=== PATIENT | male | born 1940 | race Caucasian/White ===

== ENCOUNTER 2016-05-20 00:01 | Outpatient (RCR) ==
[2016-05-16 21:19] VITALS: BMI 27.0
== END 2016-06-19 ==
LOC: CAR.REHAB 00:01
PROVIDERS: ATTEND Internal Medicine
DX: I25.10 Atherosclerotic heart disease of native coronary artery without angina pectoris (principal)

== ENCOUNTER 2016-06-20 07:42 | Outpatient (RCR) ==
[2016-05-16 21:19] VITALS: BMI 27.0
[2016-07-10 12:18] VITALS: BP 132/58
== END 2016-07-17 ==
LOC: CAR.REHAB 07:42
PROVIDERS: ATTEND Internal Medicine
DX: I25.10 Atherosclerotic heart disease of native coronary artery without angina pectoris (principal)
CPT/HCPCS: 93797

== ENCOUNTER 2016-07-17 11:29 | Outpatient (CLI) ==
[2016-05-16 21:19] VITALS: BMI 27.0
[2016-07-17 11:52] LABS: BASOPHILS % (AUTO) 0.1 % (0.0-3.0); EOSINOPHILS % (AUTO) 0.1 % (0.0-7.0); HEMATOCRIT 37.6 % (42.0-52.0); HEMOGLOBIN 13.1 g/dl (14.0-18.0); IMMATURE GRANULOCYTE % (AUTO) 0.2 % (0.0-5.0); LYMPHOCYTES # (AUTO) 0.9 K/uL (0.60-3.4); LYMPHOCYTES % (AUTO) 5.8 (10.0-50.0); MEAN CORPUSCULAR HEMOGLOBIN 30.1 pg (27.0-31.0); MEAN CORPUSCULAR HGB CONC 34.8 (31.8-35.4); MEAN CORPUSCULAR VOLUME 86.4 fl (80.0-94.0); MONOCYTES # (AUTO) 0.8 K/uL (0.4-2.0); MONOCYTES % (AUTO) 5.6 (0-10); NEUTROPHILS # (AUTO) 13.3 K/ul (2.0-6.9); NEUTROPHILS % (AUTO) 88.2; PLATELET COUNT 262 10^3/uL (140-440); RED BLOOD COUNT 4.35 10^6/ul (4.70-6.10); WHITE BLOOD COUNT 15.12 K/ul (4.2-10.2)
[2016-07-17 11:53] LABS: BILIRUBIN,URINE 2+ (NEGATIVE); KETONES,URINE 1+ (NEGATIVE); LEUKOCYTE ESTERASE ,URINE 1+ (NEGATIVE); NITRITE,URINE Positive (NEGATIVE); PROTEIN,URINE 3+ (NEGATIVE); URINE, BLOOD 3+ (NEGATIVE)
[2016-07-17 12:08] LABS: ADD URINE MICROSCOPIC YES
[2016-07-17 12:18] LABS: ALBUMIN 3.6 g/dL (3.4-5.0); ALBUMIN/GLOBULIN RATIO 1.2; ANION GAP 12.2; BILIRUBIN,TOTAL 0.87 mg/dL (0.00-1.20); CALCIUM 9.2 mg/dL (8.2-10.2); CREATININE 1.2 mg/dL (0.60-1.10); POTASSIUM 4.2 mmol/L (3.5-5.1); TOTAL PROTEIN 6.6 g/dL (5.8-8.1)
--- NOTE | 2016-07-17 13:00 | CT ---
EXAM: CT Abdomen without contrast. CT Pelvis without contrast. HISTORY: Low back pain. Hematuria. COMPARISON: None available. TECHNIQUE: Multiple axial images of the abdomen and pelvis were obtained without intravenous contra st. Images were reformatted in the coronal plane. FINDINGS: Please note that evaluation of the abdominal and pelvic structures is limited due to lack of intravenous contrast. The lung bases are clear. Degenerative changes are present in the spine. Gallbladder is absent. The liver, pancreas, spleen, and adrenal glands demonstrate normal contour. No calcified renal stones or hydronephrosis detected. No ureteral or bladder calculi detected. The bladder is not well distended although there is diffuse haziness surrounding the urinary bladder. Prostate is surgically absent. Moderate sized hiatal hernia noted. There is no evidence for bowel obstruction. Appendix is normal . No free fluid or free air identified. Atherosclerotic calcifications present. No free fluid or f ree air noted. IMPRESSION: 1. Perivesical inflammation which could suggests cystitis. Given that the prostate is absent, post radiation change would be a consideration. 2. No acute abnormality of the kidneys. 3. Moderate hiatal hernia.
== END 2016-07-17 11:30 | disposition home or self-care (01) ==
LOC: RAD 11:29
PROVIDERS: ATTEND Emergency Medicine
DX: R31.9 Hematuria, unspecified (principal); R10.9 Unspecified abdominal pain
CPT/HCPCS: 36415; 80053; 81001; 85025; 87086; 87186

== ENCOUNTER 2016-07-18 09:27 | Outpatient (RCR) ==
[2016-05-16 21:19] VITALS: BMI 27.0
[2016-08-16 10:57] VITALS: BP 136/56
== END 2016-08-17 ==
LOC: CAR.REHAB 09:27
PROVIDERS: ATTEND Internal Medicine
DX: I25.10 Atherosclerotic heart disease of native coronary artery without angina pectoris (principal)
CPT/HCPCS: 93797

== ENCOUNTER 2016-08-18 07:00 | Outpatient (RCR) ==
[2016-05-16 21:19] VITALS: BMI 27.0
[2016-09-11 10:52] VITALS: BP 136/64
== END 2016-09-16 ==
LOC: CAR.REHAB 07:00
PROVIDERS: ATTEND Internal Medicine
DX: I25.10 Atherosclerotic heart disease of native coronary artery without angina pectoris (principal)
CPT/HCPCS: 93797

== ENCOUNTER 2016-09-13 06:05 | Outpatient (CLI) ==
[2016-05-16 21:19] VITALS: BMI 27.0
--- NOTE | 2016-09-13 09:20 | STRESSMOD ---
Ordering Physician: MONICA GUERRERO Date of Test: 09/13/16 Medical History: CHEST PAIN, STENTS 2000 AND 2011 Current Medications: LOSARTAN, ATORVASTATIN, LIBRAX, LEVOTHYROXINE, NEXIUM, METOPROLOL, LORAZEPAM, ULTRAM, ESCITALOPRAM, NITROSTAT Physical Findings: S1, S2, NO S3 Resting EKG: SINUS RHYTHM/NO ACUTE CHANGES Target Heart Rate: 122/144 STAGE MPH/GRADE HEART RATE BPM BLOOD PRESSURE mmhg RHYTHM S-T SEGMENT UP DOWN SYMPTOMS,COMMENTS At Rest 50 116/60 SR X NONE 1 1.7/0% 70 120/72 SR X NONE 2 1.7/5% 75 120/60 SR X NONE 3 1.7/10% 80 138/70 SR X NONE 4 2.5/12% 5 3.4/14% 6 4.2/16% 7 5.18% Immediately after 85 SR X FATIGUE Total Time: 10:00 Maximum Heart Rate Reached: 85 Reason for Termination : FATIGUE 3 MINUTES POST EXERCISE: HR 60/BPM, BP 130/64 MMHG ____ INTERPRETATION: 98% OXYGEN SATURATION WITH EXERCISE ON ROOM AIR METS 7.0 1. NO EVIDENCE OF ISCHEMIA BY ST-T WAVE (HEART RATE 50/BPM TO 85/BPM) 2. NO CHEST PAIN OR DISCOMFORT 3. NO ARRHYTHMIAS 4. BLOOD PRESSURE RESPONSE ADEQUATE NORMAL LEFT VENTRICULAR CONTRACTILITY--RESTING AND POST EXERCISE MTDD
--- NOTE | 2016-09-13 09:27 | ECHOSTRESS ---
Date of Exam: 09/13/16 Ordering Physician: MONICA GUERRERO Reason for Echo: CHEST PAIN, STRESS TEST--NO ISCHEMIA M-Mode Normal Adult Results LV Dimensions Normal Adult Results AoV Opening excursions >1.6 LVEDD-base- 3.5-5.8 Ao root dimensions 2.0-3.7 LVESD-base- 3.1-4.6 L. Atrium dimensions 1.9-3.8 Post. Wall thickness 0.8-1.1 IV septum (thickness) 0.7-1.2 Post. Wall excursion 0.72-1.3 Septal motion Systolic motion R. Ventricular cavity 1.5-2.0 LVEF 60% Paradoxical septal wall motion 2-D: NORMAL LEFT VENTRICULAR CONTRACTILITY--RESTING AND POST EXERCISE M-MODE: MV: AV: TV: PV: CHAMBER SIZE: WALL MOTION: NORMAL LEFT VENTRICULAR CONTRACTILITY--RESTING AND POST EXERCISE PERICARDIUM: INTERPRETATION: 1. NORMAL LEFT VENTRICULAR CONTRACTILITY--RESTING AND POST EXERCISE MTDD
--- NOTE | 2016-09-14 09:36 | ECHO2D ---
Date of Exam: 09/13/16 Ordering Physician: MONICA GUERRERO Reason for Echo: CHEST PAIN M-Mode Normal Adult Results LV Dimensions Normal Adult Results AoV Opening excursions >1.6 >1.6 LVEDD-base- 3.5-5.8 4.8 Ao root dimensions 2.0-3.7 4.0 LVESD-base- 3.1-4.6 L. Atrium dimensions 1.9-3.8 5.2 Post. Wall thickness 0.8-1.1 1.2 IV septum (thickness) 0.7-1.2 1.2 Post. Wall excursion 0.72-1.3 NORMAL Septal motion NORMAL Systolic motion R. Ventricular cavity 1.5-2.0 NORMAL LVEF 60% 62% Paradoxical septal wall motion NORMAL 2-D : ENLARGED LEFT ATRIAL SIZE/ DILATED AORTIC ROOT, NORMAL LEFT VENTRICULAR CONTRACTILITY, NO EFFUSION, NO THROMBUS M-MODE: MV: NORMAL AV: NORMAL TV: NORMAL PV: CHAMBER SIZE: ENLARGED LEFT ATRIAL CAVITY/DILATED AORTIC ROOT WALL MOTION: NORMAL PERICARDIUM: NORMAL INTERPRETATION: 1. BORDERLINE LEFT VENTRICULAR HYPERTROPHY 2. NORMAL LEFT VENTRICULAR CONTRACTILITY 3. DILATED AORTIC ROOT MTDD
== END 2016-09-13 06:06 | disposition home or self-care (01) ==
LOC: CAR 06:05
PROVIDERS: ATTEND Internal Medicine
DX: R07.9 Chest pain, unspecified (principal)

== ENCOUNTER 2016-09-17 08:54 | Outpatient (RCR) ==
[2016-05-16 21:19] VITALS: BMI 27.0
[2016-10-12 11:56] VITALS: BP 124/62
== END 2016-10-17 ==
LOC: CAR.REHAB 08:54
PROVIDERS: ATTEND Internal Medicine
DX: R07.9 Chest pain, unspecified (principal)
CPT/HCPCS: 93797

== ENCOUNTER 2016-10-16 10:08 | Day surgery (SDC) ==
[2016-05-16 21:19] VITALS: BMI 27.0
[2016-10-16] MEDS ORDERED: LIDOCAINE 1% 20 ML MDV ID ONE (11:00)
[2016-10-16] MEDS ORDERED: VERSED ONE (11:55)
[2016-10-16] MEDS ORDERED: DIPRIVAN 20 ML VIAL IVP ONE (11:55)
[2016-10-16] MEDS ORDERED: LIDOCAINE HCL 2% LUER-JET ONE (11:55)
[2016-10-16 12:56] VITALS: BP 167/64; TEMP 98.9
--- NOTE | 2016-10-17 13:47 | OP ---
INDICATIONS FOR PROCEDURE: 76 year old gentleman presents for evaluation of intermittent nausea. The patient gets nausea about once every other day and can occur after a bowel movement. Initially thought that Carafate was helping but it doesn't helped. Doubled his Nexium to twice a day and hasn't made much of a difference he states. He is scheduled for endoscopy exam. MEDICATIONS: SEE ANESTHESIA NOTES. PROCEDURE: ENDOSCOPY, VENKAT BIOPSY. REPORT: The risks, benefits, alternatives and limitations were discussed in detail with the patient. Informed consent was obtained. After adequate sedation was achieved, the video endoscope was introduced in the posterior pharynx and esophagus under direct vision and easily advanced down to the second portion of the duodenum. I then slowly withdrew. The duodenal mucosa appeared unremarkable as did the duodenal bulb. The antrum and body were relatively unremarkable. The scope was retroflexed to look at the cardia and fundus which was unremarkable. The scope was anteflexed and two biopsies from the antrum and one from the body were obtained for H.Pylori testing. The scope was withdrawn back through the esophagus and there was a small 1 to 2cm sliding hiatal hernia and the esophagus was otherwise unremarkable. The patient tolerated the procedure well with stable vital signs and pulse oximetry throughout. IMPRESSION: 1. Small hiatal hernia 2. Nothing to account for his intermittent nausea RECOMMENDATIONS: 1. Strict reflux precautions 2. It is OK for him to stop the Carafate and only use it on a PRN basis as he has no significant improvement. 3. Await H. Pylori and it if positive then we will initiate treatment. 4. He does have a some nausea after bowel movement and I suggest that he go ahead and try taking her Miralax again as he moves his bowels every other day sometimes to see if increase of bowel habits would help. 5. Asked him to followup with his primary care physician for non-intestinal cause of nausea 6. Librax has helped him in the past, he may have an underlined anxiety issues that could be contributing as he has been under stress since his has passed. 7. We will see him back in the office in 6-8 weeks for followup evaluation CC: Dr. Lan HURTADO
== END 2016-10-16 13:30 | disposition home or self-care (01) ==
LOC: SURG 10:08
PROVIDERS: ATTEND Internal Medicine Gastroenterology
DX: R11.0 Nausea (principal); K44.9 Diaphragmatic hernia without obstruction or gangrene
CPT/HCPCS: 87339

== ENCOUNTER 2016-10-18 06:43 | Outpatient (RCR) ==
[2016-05-16 21:19] VITALS: BMI 27.0
[2016-11-15 10:53] VITALS: BP 108/56
== END 2016-11-16 ==
LOC: CAR.REHAB 06:43
PROVIDERS: ATTEND Internal Medicine
DX: I25.10 Atherosclerotic heart disease of native coronary artery without angina pectoris (principal)
CPT/HCPCS: 93797

== ENCOUNTER 2016-10-27 03:10 | Emergency (ER) | payer OTHER ==
[2016-10-27 03:19] VITALS: BP 126/60; TEMP 97.8; BMI 28.1
[2016-10-27 03:46] LABS: BASOPHILS # (AUTO) 0.1 K/uL (0-0.2); BASOPHILS % (AUTO) 0.7 % (0.0-3.0); EOSINOPHILS # (AUTO) 0.1 K/ul (0.0-0.7); EOSINOPHILS % (AUTO) 1.6 % (0.0-7.0); HEMATOCRIT 36.9 % (42.0-52.0); HEMOGLOBIN 12.8 g/dl (14.0-18.0); IMMATURE GRANULOCYTE % (AUTO) 0.4 % (0.0-5.0); LYMPHOCYTES # (AUTO) 1.9 K/uL (0.60-3.4); LYMPHOCYTES % (AUTO) 28.3 (10.0-50.0); MEAN CORPUSCULAR HGB CONC 34.7 (31.8-35.4); MEAN CORPUSCULAR VOLUME 86.4 fl (80.0-94.0); MONOCYTES # (AUTO) 0.6 K/uL (0.4-2.0); MONOCYTES % (AUTO) 8.2 (0-10); NEUTROPHILS # (AUTO) 4.1 K/ul (2.0-6.9); NEUTROPHILS % (AUTO) 60.8; PLATELET COUNT 209 10^3/uL (140-440); RED BLOOD COUNT 4.27 10^6/ul (4.70-6.10); WHITE BLOOD COUNT 6.72 K/ul (4.2-10.2)
[2016-10-27 04:46] LABS: ALBUMIN 3.4 g/dL (3.4-5.0); ALBUMIN/GLOBULIN RATIO 1.21; ANION GAP 8.6; BILIRUBIN,TOTAL 0.61 mg/dL (0.00-1.20); BUN/CREATININE RATIO 14.28; CALCIUM 9.3 mg/dL (8.2-10.2); CREATININE 1.19 mg/dL (0.60-1.10); POTASSIUM 3.6 mmol/L (3.5-5.1); TOTAL PROTEIN 6.2 g/dL (5.8-8.1); TROPONIN I 0.329 ng/ml (0.0000-0.4000)
--- NOTE | 2016-10-27 05:13 | ED.PDOC ---
General ED Provider: Dr. IRA GABRIEL-ER Chief Complaint: Chest Pain Stated Complaint: my chest was burning--i think it was gerd--i took 2 tums and i feel better--i have ntg at home but i didnt use it Time Seen by Physician: 03:15 Mode of Arrival: Walk-In Information Source: Patient Exam Limitations: No limitations Primary Care Provider: MONICA MALLORY Nursing and Triage Documentation Reviewed and Agree: Yes Cardiovascular Complaint Exam - Chest Pain Complaint/Exam Onset: Sudden Duration: a few min Symptoms Are: Resolved Length of Chest Pain Episodes: several min Initial Severity: Mild Current Severity: None Location: Reports: Diffuse Character: Reports: Burning Aggravating: Reports: None Alleviating: Reports: Spontaneous resolution Associated Signs and Symptoms: Denies: Diaphoresis, Nausea, Vomiting, Fever, Palpitations, Cough, Hemoptysis, Back pain, Abdominal pain, Dizziness, Short of air, Calf pain, Calf swelling Related Surgical History: Reports: PTCA/Stent History of Healthcare-Acquired Pneumonia: Reports: No AMI/ACS Risk Factors: Reports: Myocardial Infarction, Nitroglycerine use, Hypertension TAD Risk Factors: Reports: Hypertension Prior Care for this Complaint: No Recent Stress Test: Yes (2mos ago per his hx and was normal) Recent Echo/LV Function: No JVD Present: No Subcutaneous Emphysema Present: No Diminshed Breath Sounds: No Reproducible Chest Wall Pain: No Bilateral Pulses Present: Yes Unequal Pulses Noted: No If Risk Factors for AMI/ACS Consider: EKG, Cardiac Enzymes Differential Diagnoses: Acute VA, ACS, Unstable Angina, Chest Wall Pain, GI Diseasae Quality Indicator For Non-Traumatic Chest Pain/Syncope: EKG Performed Review of Systems - Review Of Systems Constitutional: Reports: No symptoms Eyes: Reports: No symptoms Ears, Nose, Mouth, Throat: Reports: No symptoms Respiratory: Reports: No symptoms Cardiac: Reports: Chest pain GI: Reports: No symptoms : Reports: No symptoms Musculoskeletal: Reports: No symptoms Skin: Reports: No symptoms Neurological: Reports: No symptoms Endocrine: Reports: No symptoms Hematologic/Lymphatic: Reports: No symptoms All Other Systems: Reviewed and Negative Past Medical History - Past Medical History Previously Healthy: No Endocrine: Reports: Dyslipidemia Cardiovascular: Reports: CAD, VA, Hypertension Respiratory: Reports: None Hematological: Reports: None Gastrointestinal: Reports: None Genitourinary: Reports: None Neuro/Psych: Reports: None Musculoskeletal: Reports: None Cancer: Reports: None - Surgical History General Surgical History: Reports: Cholecystectomy, Hernia Repair, Other - Family History Family History: Reports: Unknown - Social History Smoking Status: Never smoker Hx Substance Use: No Alcohol Screening: None Lives: With family - Immunizations Tetanus Shot up to Date: Yes Physical Exam - Physical Exam Appearance: Well-appearing, No pain distress, Well-nourished Eyes: TR, EOMI, Conjunctiva clear ENT: Ears normal, Nose normal, Oropharynx normal Neck: Supple Respiratory: Airway patent, Breath sounds clear, Breath sounds equal, Respirations nonlabored Cardiovascular: RRR, Pulses normal, No rub, No murmur GI/: Soft, Nontender, No masses, Bowel sounds normal, No Organomegaly Musculoskeletal: Normal strength, ROM intact, No edema, No calf tenderness Skin: Warm, Dry, Normal color Neurological: Sensation intact, Motor intact, Reflexes intact, Cranial nerves intact, Alert, Oriented Psychiatric: Affect appropriate, Mood appropriate Interpretation - Radiology Interpretation Radiology Interpretation By: ED Physician Radiology Results: Negative Exam Interpreted: Portable CXR - EKG Interpretation Time of EKG #1: 03:20 Rate: Normal Rhythm: Sinus Ectopy: None Debord: NL ST Segment: Normal Time of EKG #2: 05:00 Rate: Normal Rhythm: Sinus Ectopy: None Debord: NL ST Segment: Normal EKG Interpretation: nsr Re-Evaluation - Re-Evaluation Time of Re-Evaluation: 05:15 Status: Improved Vital Signs Stable: Yes Pain Level: no pain--we have observed him in the ed for 2 hrs witout cp or dyspnea Appearance: NAD Lungs: Clear Skin: Warm and Dry Neuro: Alert and Oriented X3 CV: RRR Critical Care Note - Critical Care Note Total Time (mins): 0 Course - Course Hematology/Chemistry: 10/27/16 03:41 10/27/16 03:41 Orders, Labs, Meds: Lab Review 10/27/16 03:41 WBC 6.72 RBC 4.27 L Hgb 12.8 L Hct 36.9 L MCV 86.4 MCH 30.0 MCHC 34.7 RDW Coeff of Joe 12.6 Plt Count 209 Immature Gran % (Auto) 0.4 Neut % (Auto) 60.8 Lymph % (Auto) 28.3 Moody % (Auto) 8.2 Eos % (Auto) 1.6 Baso % (Auto) 0.7 Immature Gran # (Auto) 0.0 Neut # 4.1 Lymph # 1.9 Moody # 0.6 Eos # 0.1 Baso # 0.1 D-Dimer (Manual) 265.69 Sodium 136 Potassium 3.6 Chloride 103 Carbon Dioxide 28 Anion Gap 8.6 BUN 17 Creatinine 1.19 H Estimated GFR (MDRD) 59.00 BUN/Creatinine Ratio 14.28 Glucose 103 Calcium 9.3 Total Bilirubin 0.61 AST 22 ALT 23 Alkaline Phosphatase 63 Total Creatine Kinase 182 CK-MB (CK-2) 5.0 H CK-MB (CK-2) % 2.30220 Troponin I 0.3290 Total Protein 6.2 Albumin 3.4 Globulin 2.8 Albumin/Globulin Ratio 1.21 Amylase 68 Lipase 27 TSH 0.296 L Free T4 1.06 Orders Category Date Time Status EKG-(ED ONLY) Stat CARDIO 10/27/16 03:39 Completed EKG-(ED ONLY) Timed CARDIO 10/27/16 05:00 Ordered ED [employer] .ONCE EMERGENCY 10/27/16 03:40 Active AMYLASE Stat LAB 10/27/16 03:41 Completed CBC W/ AUTO DIFF Stat LAB 10/27/16 03:41 Completed COMPREHENSIVE METABOLIC PANEL Stat LAB 10/27/16 03:41 Completed CREATINE KINASE Stat LAB 10/27/16 03:41 Completed D-DIMER Stat LAB 10/27/16 03:41 Completed FREE T4 (FREE THYROXINE) Stat LAB 10/27/16 03:41 Completed LIPASE Stat LAB 10/27/16 03:41 Completed THYROID STIMULATING HORMONE Stat LAB 10/27/16 03:41 Completed TROPONIN I Stat LAB 10/27/16 03:41 Completed CXR [CHEST, 1V AP ONLY] Stat RADS 10/27/16 03:41 Ordered Vital Signs: Temp Pulse Resp BP Pulse Ox 10/27/16 03:11 97.8 F 58 L 16 126/60 97 ESTELLE Risk Score ESTELLE Risk Score: Risk Score Odds of by 30D 0 0.1 (0.1-0.2) 1 0.3 (0.2-0.3) 2 0.4 (0.3-0.5) 3 0.7 (0.6-0.9) 4 1.2 (1.0-1.5) 5 2.2 (1.9-2.6) 6 3.0 (2.5-3.6) 7 4.8 (3.8-6.1) Departure - Departure Time of Disposition: 05:15 Disposition: HOME SELF-CARE Discharge Problem: Chest pain Instructions: Chest Pain (ED) Condition: Good Pt referred to PMD for follow-up: Yes Additional Instructions: if any furtehr chest pain--use ntg and call 911--f/u with dr mallory next week Allergies/Adverse Reactions: Allergies No Known Allergies Allergy (Verified 10/27/16 03:24) Home Medications: Ambulatory Orders Aspirin [Aspirin EC] 81 mg PO DAILY 08/06/13 Calcium Carbonate/Vitamin D3 [Calcium 1,000 + D3 Caplet] 1 tab PO DAILY Lorazepam [Ativan] 0.5 mg PO DAILY 08/06/13 Atorvastatin Calcium [Lipitor] 40 mg PO BEDTIME 11/06/13 Esomeprazole Magnesium [Nexium] 1 cap PO BID 11/06/13 Metoprolol Tartrate [Lopressor] 25 mg PO BID 11/06/13 Nitroglycerin [Nitrostat] 0.4 mg SL DIRECTED PRN 11/06/13 Multivit-Min/FA/Lycopene/Lut [Centrum Silver Ultra Men's Tab] 1 each PO DAILY [place]-3/Dha/Epa/Fish Oil [[place]-3 Fish Oil 1,200 mg Sfgl] 1,200 mg PO QID Cyanocobalamin (Vitamin B-12) [Vitamin B12] 500 mcg PO DAILY 10/16/16 Escitalopram Oxalate 20 mg PO DAILY 10/16/16 Levothyroxine Sodium [Synthroid] 50 mcg PO QDAC 10/16/16 Losartan/Hydrochlorothiazide [Losartan-Hctz 100-25 mg Tab] 0.5 tab PO DAILY 03/05 Polyethylene Glycol [Polyox Wsr-301] 1 gm MC DAILY PRN 10/27/16 Disposition Discussed With: Patient, Family
--- NOTE | 2016-10-27 07:12 | DI ---
EXAM: Single frontal view of the chest HISTORY: Chest pain. COMPARISON: Chest x-ray 04/30/[address] chest 05/06/2016 with multiple priors. FINDINGS: Cardiomediastinal silhouette is upper limit of normal. There is no pneumothorax or pleura l effusion. There is no consolidation, nodule or mass. The osseous structures are stable. IMPRESSION: No acute cardiopulmonary process with mild cardiomediastinal silhouette enlargement.
== END 2016-10-27 05:29 | disposition home or self-care (01) ==
LOC: ED 03:10
DX: R07.9 Chest pain, unspecified (principal); I10 Essential (primary) hypertension; E78.5 Hyperlipidemia, unspecified; I25.10 Atherosclerotic heart disease of native coronary artery without angina pectoris; I25.2 Old myocardial infarction; Z95.5 Presence of coronary angioplasty implant and graft; Z79.899 Other long term (current) drug therapy
CPT/HCPCS: 36415; 80053; 82150; 82550; 82553; 83690; 84439; 84443; 84484; 85025; 85379; 93005; 93010; 99283

== ENCOUNTER 2016-11-19 07:52 | Outpatient (RCR) ==
[2016-12-11 11:11] VITALS: BP 114/62
== END 2016-12-17 ==
LOC: CAR.REHAB 07:52
PROVIDERS: ATTEND Internal Medicine
DX: I25.10 Atherosclerotic heart disease of native coronary artery without angina pectoris (principal)
CPT/HCPCS: 93797

== ENCOUNTER 2016-12-18 06:52 | Outpatient (RCR) ==
[2016-12-18 11:07] VITALS: BP 128/53
== END 2016-12-28 15:00 | disposition home or self-care (01) ==
LOC: CAR.REHAB 06:52
PROVIDERS: ATTEND Internal Medicine
DX: I25.10 Atherosclerotic heart disease of native coronary artery without angina pectoris (principal)
CPT/HCPCS: 93797

== ENCOUNTER 2017-02-05 09:49 | Outpatient (RCR) ==
[2017-02-12 10:55] VITALS: BP 136/58
== END 2017-02-16 ==
LOC: CAR.REHAB 09:49 → EDSTATUS 09:49
PROVIDERS: ATTEND Internal Medicine
DX: I25.10 Atherosclerotic heart disease of native coronary artery without angina pectoris (principal); Z95.5 Presence of coronary angioplasty implant and graft; I20.9 Angina pectoris, unspecified
CPT/HCPCS: 93797

== ENCOUNTER 2017-03-20 07:37 | Outpatient (RCR) ==
[2017-04-09 10:56] VITALS: BP 118/58
== END 2017-04-18 ==
LOC: CAR.REHAB 07:37
PROVIDERS: ATTEND Internal Medicine
DX: I25.10 Atherosclerotic heart disease of native coronary artery without angina pectoris (principal); I20.9 Angina pectoris, unspecified; Z95.5 Presence of coronary angioplasty implant and graft
CPT/HCPCS: 93797

== ENCOUNTER 2017-04-19 07:13 | Outpatient (RCR) | END 2017-05-19 | LOC: CAR.REHAB 07:13 | PROVIDERS: ATTEND Internal Medicine | DX: I25.10 Atherosclerotic heart disease of native coronary artery without angina pectoris (principal); I20.9 Angina pectoris, unspecified; Z95.5 Presence of coronary angioplasty implant and graft ==

== ENCOUNTER 2017-05-21 07:03 | Outpatient (RCR) | END 2017-06-18 10:34 | disposition home or self-care (01) | LOC: CAR.REHAB 07:03 | PROVIDERS: ATTEND Internal Medicine | DX: I25.10 Atherosclerotic heart disease of native coronary artery without angina pectoris (principal); I20.9 Angina pectoris, unspecified; Z95.5 Presence of coronary angioplasty implant and graft ==

== ENCOUNTER 2017-07-25 09:03 | Outpatient (RCR) ==
[2017-07-25 10:11] VITALS: BMI 29.7
[2017-08-15 09:52] VITALS: BP 128/54
== END 2017-08-17 ==
LOC: CAR.REHAB 09:03
PROVIDERS: ATTEND Internal Medicine
DX: I25.810 Atherosclerosis of coronary artery bypass graft(s) without angina pectoris (principal); Z95.5 Presence of coronary angioplasty implant and graft; E11.9 Type 2 diabetes mellitus without complications
CPT/HCPCS: 93797

== ENCOUNTER 2017-08-19 08:57 | Outpatient (RCR) ==
[2017-09-12 09:51] VITALS: BP 140/56
== END 2017-09-16 23:59 ==
LOC: CAR.REHAB 08:57
PROVIDERS: ATTEND Internal Medicine
DX: I25.10 Atherosclerotic heart disease of native coronary artery without angina pectoris (principal); Z95.5 Presence of coronary angioplasty implant and graft
CPT/HCPCS: 93797

== ENCOUNTER 2017-09-17 06:50 | Outpatient (RCR) ==
[2017-10-17 09:32] VITALS: BP 130/56
== END 2017-10-17 23:59 ==
LOC: CAR.REHAB 06:50
PROVIDERS: ATTEND Internal Medicine
DX: I25.10 Atherosclerotic heart disease of native coronary artery without angina pectoris (principal); I20.9 Angina pectoris, unspecified; Z95.5 Presence of coronary angioplasty implant and graft
CPT/HCPCS: 93797

== ENCOUNTER 2017-10-18 08:46 | Outpatient (RCR) ==
[2017-11-12 10:55] VITALS: BP 130/56
== END 2017-11-16 23:59 ==
LOC: CAR.REHAB 08:46
PROVIDERS: ATTEND Internal Medicine
DX: I25.10 Atherosclerotic heart disease of native coronary artery without angina pectoris (principal); I20.9 Angina pectoris, unspecified; Z95.5 Presence of coronary angioplasty implant and graft
CPT/HCPCS: 93797

== ENCOUNTER 2017-11-18 07:29 | Outpatient (RCR) ==
[2017-12-17 10:51] VITALS: BP 130/56
== END 2017-12-17 23:59 ==
LOC: CAR.REHAB 07:29
PROVIDERS: ATTEND Internal Medicine
DX: I25.10 Atherosclerotic heart disease of native coronary artery without angina pectoris (principal); Z95.5 Presence of coronary angioplasty implant and graft
CPT/HCPCS: 93797

== ENCOUNTER 2017-12-18 07:13 | Outpatient (RCR) ==
[2018-01-16 10:47] VITALS: BP 148/58
== END 2018-01-17 23:59 ==
LOC: CAR.REHAB 07:13
PROVIDERS: ATTEND Internal Medicine
DX: I25.10 Atherosclerotic heart disease of native coronary artery without angina pectoris (principal); Z95.5 Presence of coronary angioplasty implant and graft
CPT/HCPCS: 93797

== ENCOUNTER 2018-01-21 07:09 | Outpatient (RCR) ==
[2018-02-13 12:09] VITALS: BP 136/56
== END 2018-02-16 23:59 ==
LOC: CAR.REHAB 07:09
PROVIDERS: ATTEND Internal Medicine
DX: I25.10 Atherosclerotic heart disease of native coronary artery without angina pectoris (principal); Z95.5 Presence of coronary angioplasty implant and graft
CPT/HCPCS: 93797

== ENCOUNTER 2018-01-22 12:32 | Outpatient (CLI) | payer OTHER ==
--- NOTE | 2018-01-22 13:36 | CT ---
EXAM: CT of the head without contrast History: Head trauma and headache. Technique: Multiplanar CT images through the head were obtained without the administration of IV con trast. Findings: The visualized paranasal sinuses and mastoid air cells are clear in general. No acute tereza varial abnormalities. Intracranially the ventricular and cisternal spaces are normal in size, shape and configuration for a patient of this age. No dominant mass or midline shift. No hydrocephalous. No acute intracranial hemorrhage or abnormal extraaxial fluid collections. Impression: No acute intracranial process.
== END 2018-01-22 12:33 | disposition home or self-care (01) ==
LOC: RAD 12:32
PROVIDERS: ATTEND Internal Medicine
DX: S09.90XA Unspecified injury of head, initial encounter (principal); R51 Headache

== ENCOUNTER 2018-02-17 08:46 | Outpatient (RCR) ==
[2018-02-20 10:52] VITALS: BP 140/62
== END 2018-02-25 07:45 | disposition home or self-care (01) ==
LOC: CAR.REHAB 08:46
PROVIDERS: ATTEND Internal Medicine
DX: I25.10 Atherosclerotic heart disease of native coronary artery without angina pectoris (principal); Z95.5 Presence of coronary angioplasty implant and graft
CPT/HCPCS: 93797

== ENCOUNTER 2018-12-09 06:34 | Day surgery (SDC) | payer OTHER ==
[2018-11-18 09:35] VITALS: BMI 30.4
[2018-12-09] MEDS ORDERED: LIDOCAINE 1% 20 ML MDV ID STA (07:11)
[2018-12-09 07:15] VITALS: TEMP 97.1
[2018-12-09] MEDS ORDERED: DIPRIVAN 20 ML VIAL IVP ONE (09:15)
[2018-12-09 10:16] VITALS: BP 108/39
--- NOTE | 2018-12-10 10:48 | OP ---
INDICATIONS FOR PROCEDURE: 78 year old gentleman presents for colonoscopy exam. He has a past history of colon polyps unknown histology with his last colonoscopy 5 years ago. MEDICATIONS: SEE ANESTHESIA NOTES. PROCEDURE: COLONOSCOPY. SNARE POLYPECTOMY REPORT: The risks, benefits, alternatives and limitations were discussed in detail with the patient. Informed consent was obtained. After adequate sedation was achieved, a digital rectal exam revealed good tone, no masses. The colonoscope was introduced into the rectum and advanced under direct visual guidance to the cecum. The cecum was identified by the appendiceal orifice and IC valve. I then slowly the scope in circumferential manner and examined the mucosa quite carefully. I looked on the proximal and distal sides of folds and flexures as best as possible. I was able to retroflex the scope in the right colon and the left colon to increase visualization. The prep was good. In the ascending colon there was 5mm semi-sessile polyp that I removed by snare technique. In the distal transverse colon at the splenic flexure area there was 2 polyps they were about 7mm and 5mm in size and sessile. These were removed by snare technique. Withdrawing through the sigmoid revealed a few small diverticuli. No other abnormalities noted including on retroflex view of the anal canal. Withdraw time was 11 minute and 51 seconds. The patient tolerated the procedure well with stable vital signs and pulse oximetry throughout. IMPRESSION: 1. Three small polyps removed 2. Mild sigmoid diverticulosis RECOMMENDATIONS: 1. High fiber diet 2. Office visit as needed 3. Await pathology results if everything is benign as expected without alarm features that I suggest a surveillance colonoscopy examination again in 3 years or sooner if there are any signs or symptoms to indicate otherwise. CC: Dr. Lan HURTADO
== END 2018-12-09 10:45 | disposition home or self-care (01) ==
LOC: SURG 06:34
PROVIDERS: ATTEND Internal Medicine Gastroenterology
DX: Z86.010 Personal history of colon polyps (principal); D12.2 Benign neoplasm of ascending colon; K63.5 Polyp of colon

== ENCOUNTER 2018-12-18 07:01 | Outpatient (RCR) ==
[2018-11-18 09:35] VITALS: BMI 30.4
[2019-01-01 09:55] VITALS: BP 134/60
== END 2019-01-05 08:55 | disposition home or self-care (01) ==
LOC: CAR.REHAB 07:01
PROVIDERS: ATTEND Internal Medicine
DX: I25.10 Atherosclerotic heart disease of native coronary artery without angina pectoris (principal); Z95.5 Presence of coronary angioplasty implant and graft
CPT/HCPCS: 93797

== ENCOUNTER 2019-04-22 11:10 | Inpatient (IN) ==
--- NOTE | 2019-04-22 12:13 | CT ---
EXAM: CT BRAIN HISTORY: Head pain TECHNIQUE: CT brain without intravenous contrast. 5-mm axial sections with Reformations. COMPARISON: 01/22/2018 FINDINGS: There is generalized atrophy. There is moderate periventricular and deep white matter low attenuatio n which although nonspecific is suggestive of chronic microvascular ischemic change. These findings are stable. Brain otherwise was unremarkable without evidence of hemorrhage or large vessel distribution recent i schemic infarction. There is no suggestion of acute hydrocephalus or subdural fluid collection. No mass or mass effect. Cranium has no acute finding. Mastoid processes are aerated. The visualized paranasal sinuses revea l mild mucosal thickening IMPRESSION: 1. No acute intracranial process. 2. Mild chronic paranasal sinusitis.
--- NOTE | 2019-04-22 12:33 | CT ---
EXAM: CT THORAX HISTORY: Cough, confusion, fever and weakness. TECHNIQUE: CT thorax without intravenous contrast. Multiplanar images presented. COMPARISON: 02/09/2019 FINDINGS: Heart size is approaching upper limit normal. There is no pericardial effusion. There is atheroscle rotic disease including at the coronary artery levels. No acute infiltrates or consolidated pneumoni a. There is no vascular congestion, pneumothorax or pleural fluid. Stable small right upper lobe no dule measuring about 5 mm since at least 2015. Bones reveal no acute abnormality. Stable paraesophageal hernia. IMPRESSION: 1. No acute process or pneumonia. 2. Stable small right upper lobe nodule. 3. Prominent heart size. 4. Atherosclerotic disease. 5. Stable paraesophageal hernia.
--- NOTE | 2019-04-22 12:39 | CT ---
EXAM: CT ABDOMEN AND PELVIS HISTORY: Abdominal pain, confusion, fever TECHNIQUE: CT abdomen and pelvis without intravenous contrast. Images were reconstructed using 5 mm section thickness. Reformations were prepared. COMPARISON: 07/17/2016 FINDINGS: Diagnostic limitations exist without including intravenous contrast enhanced images. No focal hepati c or splenic lesions. Gallbladder is absent. Pancreas and adrenal glands appear normal. There is s ubtle nonspecific bilateral perinephric fat stranding similar to that previously seen. No hydronephr osis or evidence of urolithiasis. Mild atherosclerotic disease. Grossly stable para esophageal hernia. No evidence of gastric obstruction. The appendix appears nor mal. Nonobstructive bowel gas pattern. Urinary bladder is unremarkable. No prostate is seen. Ther e is no ascites. No abdominal wall hernia. Bones reveal no acute abnormality. The previously described fracture of t he right medial 12th rib and lateral aspect of the right L1 transverse process again noted since more recent CT. These appear to be partially healed. No pneumoperitoneum. See also same day CT thorax report. IMPRESSION: 1. Normal bowel gas pattern. 2. Subtle nonspecific bilateral perinephric fat stranding similar to that previously seen. Correlat e with urinalysis if indicated clinically. 3. Atherosclerotic disease.
[2019-04-22] MEDS ORDERED: ROCEPHIN 1 GM/50 ML D5W 1 GM/50 ML BAG IV STA (13:21)
--- NOTE | 2019-04-22 13:26 | ED.PDOC ---
General ED Provider: Dr. NAVDEEP HUSTON Chief Complaint: Respiratory Complaint Stated Complaint: FLU LIKE SYMPTOMS, HEAD ACHE Time Seen by Physician: 13:38 Mode of Arrival: Wheelchair Information Source: Patient and Family Exam Limitations: No limitations Primary Care Provider: MONICA GUERRERO Nursing and Triage Documentation Reviewed and Agree: Yes Does patient meet sepsis criteria?: No If yes, has appropriate treatment been initiated?: No System Inflammatory Response Syndrome: Not Applicable Sepsis Protocol: For patient's 13 years and over: Temp is 96.8 and below OR 101 and greater Pulse >90 BPM Resp >20/minute Acutely Altered Mental Status Are patient's symptoms suggestive of a new infection, such as: -Pneumonia -Skin, Soft Tissue -Endocarditis -UTI -Bone, Joint Infection -Implantable Device -Acute Abdominal Infection -Wound Infection -Meningitis -Blood Stream Catheter Infection -Unknown Respiratory Complaint Exam Respiratory Complaint/Exam Symptoms Are: Still present Timing: Constant Initial Severity: Moderate Current Severity: Moderate Location: Throat and Chest Character: Reports Non-productive cough Aggravating: Reports None Alleviating: Reports None and Spontaneous resolution Associated Signs and Symptoms: Reports Nasal congestion and Sore throat; Denies Rapid breathing, Dyspnea, Fever, Chills, Chest pain, Pleuritic chest pain, Wheezing, Hemoptysis, Dizziness, Calf pain, Calf swelling, Edema, URI, Hoarseness, Sinus discomfort, Vomiting, Weight loss, Decreased oral intake, Increased thirst, Increased appetite and Increased urination Related History: Reports Similar episode Pulmonary Embolism Risk Factors: None Cardiac Risk Factors: Reports Hypertension Pseudomonas Risk Factors: Reports None Tuberculosis Risk Factors: Reports None Status Asthmaticus Risk Factors: Reports None Home Oxygen Use: No Recent Stress Test: No Recent Echo/LV Function: No Current Antibiotic Use: No Current Asthma Medication Use: No Respiratory Distress: None Inadequate Respiratory Effort: No Dysphagia Present: No Stridor Present: No JVD Present: No Accessory Muscle Use: No Retractions: Not Present Diminished Breath Sounds: Yes Sinus Tenderness: None Grunting Respirations: No Kussmaul Respirations: No Differential Diagnoses: Pneumonia, URI, Influenza and Lower Resp. Infection Quality Indicators For Pneumonia: Antibiotics in 6hr-admit, SpO2 assessed, Empiric Antibiotic Rx and Mental status assessed Review of Systems Review Of Systems Constitutional: Reports Chills, Malaise, Weakness, Sweats and Loss of appetite Eyes: Reports No symptoms Ears, Nose, Mouth, Throat: Reports No symptoms Respiratory: Reports Cough Cardiac: Reports No symptoms GI: Reports No symptoms : Reports No symptoms Musculoskeletal: Reports No symptoms Skin: Reports No symptoms Neurological: Reports No symptoms Endocrine: Reports No symptoms Hematologic/Lymphatic: Reports No symptoms All Other Systems: Reviewed and Negative [facility] Social History Smoking and tobacco status: Never smoker Physical Exam Physical Exam Appearance: Well-appearing, No pain distress and Well-nourished Ill-appearing: Mild Pain Distress: Mild Eyes: TR, EOMI and Conjunctiva clear ENT: Ears normal, Nose normal and Oropharynx normal Neck: Supple Respiratory: Airway patent, Breath sounds clear, Breath sounds equal and Respirations nonlabored Cardiovascular: RRR, Pulses normal, No rub and No murmur GI/: Soft, Nontender, No masses, Bowel sounds normal and No Organomegaly Musculoskeletal: Normal strength, ROM intact, No edema and No calf tenderness Skin: Warm, Dry and Normal color Neurological: Sensation intact, Motor intact, Reflexes intact, Cranial nerves intact, Alert and Oriented Psychiatric: Affect appropriate and Mood appropriate Re-Evaluation Re-Evaluation Time of Re-Evaluation: 13:00 Status: Improved Vital Signs Stable: Yes Pain Level: 0 Appearance: NAD Lungs: Clear Skin: Warm and Dry Neuro: Alert and Oriented X3 CV: RRR Re-Evaluation Time of Re-Evaluation: 13:42 Status: Improved Vital Signs Stable: Yes Pain Level: 0 Appearance: NAD Skin: Warm and Dry Neuro: Alert and Oriented X3 CV: RRR Physician Notification Case Discussed Physician Notified: PMD Time of Notification: 13:43 Critical Care Note Critical Care Note Total Time (mins): 0 Course Course Hematology/Chemistry: 04/22/19 12:20 04/22/19 12:20 Orders, Labs, Meds: Lab Review 04/22/19 04/22/19 04/22/19 11:32 12:10 12:20 WBC RBC Hgb Hct MCV MCH MCHC RDW Coeff of Joe Plt Count Immature Gran % (Auto) Neut % (Auto) Lymph % (Auto) Vernon % (Auto) Eos % (Auto) Baso % (Auto) Immature Gran # (Auto) Neut # (Auto) Lymph # (Auto) Vernon # (Auto) Eos # (Auto) Baso # (Auto) Puncture Site R rad O2 Saturation 98.0 ABG pH 7.492 H ABG pCO2 28.8 L ABG pO2 88.0 ABG HCO3 22.1 ABG Total CO2 23 ABG Base Excess -1 Leonidas Test + FiO2 % 21.0 Sodium Potassium Chloride Carbon Dioxide Anion Gap BUN Creatinine Estimated GFR (MDRD) BUN/Creatinine Ratio Glucose Lactic Acid Calcium Total Bilirubin AST ALT Alkaline Phosphatase Total Creatine Kinase 90.8 Troponin I 0.017 Total Protein Albumin Globulin Albumin/Globulin Ratio Urine Color Urine Clarity Urine pH Ur Specific Garwin Urine Protein Urine Glucose (UA) Urine Ketones Urine Blood Urine Nitrite Urine Bilirubin Urine Urobilinogen Ur Leukocyte Esterase Ur Squamous Epith Cells Urine Mucus Influ A Molecular Assay Negative by naat Influ B Molecular Assay Negative by naat 04/22/19 04/22/19 04/22/19 12:20 12:20 12:20 WBC 8.63 RBC 4.15 L Hgb 12.5 L Hct 37.4 L MCV 90.1 MCH 30.1 MCHC 33.4 RDW Coeff of Joe 14.2 Plt Count 174 Immature Gran % (Auto) 0.3 Neut % (Auto) 80.5 Lymph % (Auto) 7.9 L Vernon % (Auto) 11.2 H Eos % (Auto) 0.0 Baso % (Auto) 0.1 Immature Gran # (Auto) 0.0 Neut # (Auto) 6.9 Lymph # (Auto) 0.7 Vernon # (Auto) 1.0 Eos # (Auto) 0.0 Baso # (Auto) 0.0 Puncture Site O2 Saturation ABG pH ABG pCO2 ABG pO2 ABG HCO3 ABG Total CO2 ABG Base Excess Leonidas Test FiO2 % Sodium 133.2 L Potassium 3.82 Chloride 97.0 L Carbon Dioxide 26.2 Anion Gap 13.82 BUN 22.1 H Creatinine 1.53 H Estimated GFR (MDRD) 44.00 BUN/Creatinine Ratio 14.44 Glucose 124.6 H Lactic Acid 1.58 Calcium 9.15 Total Bilirubin 1.07 AST 30.1 ALT 23.7 Alkaline Phosphatase 97.0 Total Creatine Kinase Troponin I Total Protein 7.66 Albumin 4.37 Globulin 3.29 Albumin/Globulin Ratio 1.32 Urine Color Urine Clarity Urine pH Ur Specific Garwin Urine Protein Urine Glucose (UA) Urine Ketones Urine Blood Urine Nitrite Urine Bilirubin Urine Urobilinogen Ur Leukocyte Esterase Ur Squamous Epith Cells Urine Mucus Influ A Molecular Assay Influ B Molecular Assay 04/22/19 13:12 WBC RBC Hgb Hct MCV MCH MCHC RDW Coeff of Joe Plt Count Immature Gran % (Auto) Neut % (Auto) Lymph % (Auto) Vernon % (Auto) Eos % (Auto) Baso % (Auto) Immature Gran # (Auto) Neut # (Auto) Lymph # (Auto) Vernon # (Auto) Eos # (Auto) Baso # (Auto) Puncture Site O2 Saturation ABG pH ABG pCO2 ABG pO2 ABG HCO3 ABG Total CO2 ABG Base Excess Leonidas Test FiO2 % Sodium Potassium Chloride Carbon Dioxide Anion Gap BUN Creatinine Estimated GFR (MDRD) BUN/Creatinine Ratio Glucose Lactic Acid Calcium Total Bilirubin AST ALT Alkaline Phosphatase Total Creatine Kinase Troponin I Total Protein Albumin Globulin Albumin/Globulin Ratio Urine Color Yellow Urine Clarity Clear Urine pH 5.5 Ur Specific Garwin 1.025 Urine Protein 1+ Urine Glucose (UA) Negative Urine Ketones Negative Urine Blood Negative Urine Nitrite Negative Urine Bilirubin Negative Urine Urobilinogen 0.2 Ur Leukocyte Esterase Negative Ur Squamous Epith Cells Not present Urine Mucus Trace Influ A Molecular Assay Influ B Molecular Assay Orders Category Date Time Status ABG DRAW REQUEST Stat CARDIO 04/22/19 11:42 Completed EKG-(ED ONLY) Stat CARDIO 04/22/19 11:42 Completed EKG-(IP & OP ONLY) DAILY CARDIO 04/23/19 06:00 Ordered EKG-(IP & OP ONLY) DAILY CARDIO 04/24/19 06:00 Ordered EKG-(IP & OP ONLY) DAILY CARDIO 04/25/19 06:00 Ordered INCISION/WOUND CARE Q6HR CARE 04/22/19 13:36 Ordered INTAKE & OUTPUT Q8HR CARE 04/22/19 13:37 Ordered VITAL SIGNS Q4HR CARE 04/22/19 13:36 Ordered REGULAR DIET DIETARY 04/22/19 Lunch Ordered ABG Stat LAB 04/22/19 12:10 Completed BLOOD CULTURE Stat LAB 04/22/19 12:36 Received CBC W/ AUTO DIFF DAILY@0600 LAB 04/23/19 06:00 Ordered CBC W/ AUTO DIFF DAILY@0600 LAB 04/24/19 06:00 Ordered CBC W/ AUTO DIFF Stat LAB 04/22/19 12:20 Completed COMPREHENSIVE METABOLIC PANEL DAILY@0600 LAB 04/23/19 06:00 Ordered COMPREHENSIVE METABOLIC PANEL DAILY@0600 LAB 04/24/19 06:00 Ordered COMPREHENSIVE METABOLIC PANEL Stat LAB 04/22/19 12:20 Completed CREATINE KINASE Stat LAB 04/22/19 12:20 Completed FLU A/B MOLECULAR Stat LAB 04/22/19 11:32 Completed LACTIC ACID Stat LAB 04/22/19 12:20 Completed MOLECULAR GROUP A STREP Stat LAB 04/22/19 11:32 Completed TROPONIN I Stat LAB 04/22/19 12:20 Completed URINALYSIS C & S IF INDICATED Stat LAB 04/22/19 13:12 Completed Aspirin [Aspirin EC] MEDS 04/23/19 09:00 Ordered 81 mg PO DAILY Atorvastatin Calcium [Lipitor] MEDS 04/22/19 21:00 Ordered 40 mg PO BEDTIME Ceftriaxone/D5w 1 gm Premix [Rocephin 1 gm/50 ml D5w] MEDS 04/22/19 13:21 Active 1 gm in 50 ml IV ONCE Escitalopram Oxalate [Lexapro] MEDS 04/23/19 09:00 Ordered 20 mg PO DAILY Levothyroxine Sodium [Synthroid] MEDS 04/23/19 06:30 Ordered 50 mcg PO QDAC Lorazepam [Ativan] MEDS 04/23/19 09:00 Ordered 0.5 mg PO DAILY Losartan/Hydrochlorothiazide [Hyzaar 50-12.5 mg Tab] MEDS 04/23/19 09:00 Ordered 1 tab PO DAILY Metoprolol Tartrate [Lopressor] MEDS 04/22/19 21:00 Ordered 25 mg PO BID Ropinirole HCl [Requip] MEDS 04/22/19 21:00 Ordered 0.25 mg PO BEDTIME Sodium Chloride 0.9% [Sodium Chloride] 1,000 ml MEDS 04/22/19 14:00 Ordered IV 75 mls/hr calcium carbonate-vitamin D3 MEDS 04/23/19 09:00 Ordered 1 tab PO DAILY esomeprazole magnesium [Nexium] MEDS 04/23/19 09:00 Ordered [address] ABDOMEN/PELVIS WO CONTRAST Stat RADS 04/22/19 11:[address] CHEST W/O CONTRAST Stat RADS 04/22/19 11:[address] HEAD W/O CONTRAST Stat RADS 04/22/19 11:42 Completed Medications Generic Name Dose Route Start Last Admin Trade Name Freq PRN Reason Stop Dose Admin Aspirin 81 mg 04/23/19 09:00 Aspirin Ec PO DAILY TOBY Atorvastatin Calcium 40 mg 04/22/19 21:00 Lipitor PO BEDTIME TOBY Escitalopram Oxalate 20 mg 04/23/19 09:00 Lexapro PO DAILY TOBY HCTZ/Losartan Potassium 1 tab 04/23/19 09:00 Hyzaar 50-12.5 Mg Tab PO DAILY TOBY CEFTRIAXONE/D5W 1 GM PREMIX 1 gm in 50 mls @ 75 mls/hr 04/22/19 13:21 Rocephin 1 Gm/50 Ml D5w IV 04/22/19 14:00 ONCE STA Levothyroxine Sodium 50 mcg 04/23/19 06:30 Synthroid PO QDAC TOBY Lorazepam 0.5 mg 04/23/19 09:00 Ativan PO DAILY TOBY Metoprolol Tartrate 25 mg 04/22/19 21:00 Lopressor PO BID TOBY Non-Formulary Medication 1 tab 04/23/19 09:00 Calcium Carbonate-Vitamin D3 PO DAILY TOBY Non-Formulary Medication 1 cap 04/23/19 09:00 Esomeprazole Magnesium [Nexium] PO DAILY [facility] Ropinirole HCl 0.25 mg 04/22/19 21:00 Requip PO BEDTIME [facility] Vital Signs: Temp Pulse Resp BP Pulse Ox 04/22/19 11:11 101.8 F H 60 20 132/61 95 Discharge Plan Discharge Patient Disposition: ADMITTED INPATIENT Discharge Problem: Fever, Chronic renal insufficiency Prescriptions: No Action aspirin 81 MG tablet,delayed release (DR/EC) 81 mg PO DAILY RF: 0 lorazepam [Ativan] 0.5 MG tablet 0.5 mg PO DAILY RF: 0 calcium carbonate-vitamin D3 1 EACH tablet 1 tab PO DAILY RF: 0 atorvastatin [Lipitor] 40 MG tablet 40 mg PO BEDTIME RF: 0 nitroglycerin [Nitrostat] 0.4 MG tablet, sublingual 0.4 mg sublingual DIRECTED PRN (Reason: Chest Pain) RF: 0 esomeprazole magnesium [Nexium] 40 MG capsule,delayed release(DR/EC) 1 cap PO DAILY RF: 0 metoprolol tartrate 25 MG tablet 25 mg PO BID RF: 0 Centrum Silver Ultra Men's 1 EACH tablet 1 ea PO DAILY RF: 0 omega 3-edl-nxf-fish oil 1,200 MG capsule 1,200 mg PO QID RF: 0 levothyroxine [Synthroid] 50 MCG tablet 50 mcg PO QDAC RF: 0 escitalopram oxalate 20 MG tablet 20 mg PO DAILY RF: 0 cyanocobalamin (vitamin B-12) 2,500 MCG tablet 500 mcg PO DAILY RF: 0 ropinirole 0.25 mg Tablet 0.25 mg PO BEDTIME RF: 0 losartan-hydrochlorothiazide [Hyzaar] 50-12.5 mg Tablet 1 tab PO DAILY RF: 0 ED Provider: NAVDEEP HUSTON Condition: Good
[2019-04-22] MEDS: SODIUM CHLORIDE 1,000 ML IV SCH (14:05)
[2019-04-22] MEDS ORDERED: DECADRON 4 MG/ML SDV IM STA (16:36)
[2019-04-22] MEDS ORDERED: TYLENOL PO PRN (16:38)
[2019-04-22] MEDS: LOPRESSOR PO SCH (17:13)
[2019-04-22 17:28] VITALS: BMI 29.9
[2019-04-22] MEDS: LIPITOR PO SCH (20:20)
[2019-04-22] MEDS ORDERED: REQUIP PO SCH (21:00)
[2019-04-23] MEDS: PROTONIX PO SCH (05:36)
[2019-04-23] MEDS: SYNTHROID PO SCH (05:36)
[2019-04-23] MEDS ORDERED: CALCIUM CARBONATE VITAMIN D3 PO SCH (09:00)
[2019-04-23] MEDS ORDERED: ESOMEPRAZOLE MAGNESIUM PO SCH (09:00)
[2019-04-23] MEDS: ROCEPHIN 1 GM/50 ML D5W 1 GM/50 ML BAG IV SCH (09:00)
[2019-04-23] MEDS: LEXAPRO PO SCH (09:02)
[2019-04-23] MEDS: LOPRESSOR PO SCH ×2 (09:02→17:19)
[2019-04-23] MEDS: ASPIRIN EC PO SCH (09:02)
[2019-04-23] MEDS: CALCIUM 500 + VIT D 200 MG TABLET PO SCH (09:02)
[2019-04-23] MEDS: HYZAAR 50-12.5 MG TAB PO SCH (09:02)
[2019-04-23] MEDS: ATIVAN PO SCH (09:02)
[2019-04-23] MEDS: SODIUM CHLORIDE 1,000 ML IV SCH ×3 (09:03→19:24)
--- NOTE | 2019-04-23 11:28 | US ---
EXAM: Carotid ultrasound HISTORY: Confusion, unsteady gait COMPARISON: None TECHNIQUE: Carotid ultrasound was performed using Duplex imaging with gasca scale, color, and Doppler imaging performed. FINDINGS: Right carotid: There is mild atherosclerotic plaque in the common carotid and bulb/internal carotid artery. Peak systolic velocity measurement in the right internal carotid artery is 0.73 meters per s econd. End-diastolic velocity measurement in the right internal carotid artery is 0.12 meters per se cond. Right internal to common carotid artery peak systolic velocity ratio is 0.9. Flow in the righ t vertebral artery is antegrade. Left carotid: There is mild atherosclerotic plaque in the common carotid and bulb/internal carotid a rtery. Peak systolic velocity measurement in the left internal carotid artery is 0.78 meters per sec ond. End-diastolic velocity measurement in the left internal carotid artery is 0.14 meters per secon d. Left internal to common carotid artery peak systolic velocity ratio measures 0.9. Flow in the le ft vertebral artery is antegrade. IMPRESSION: 1. Right internal carotid: Peak systolic velocity corresponds with mild (less than 50%) stenosis. 2. Left internal carotid: Peak systolic velocity corresponds with mild (less than 50%) stenosis.
[2019-04-23] MEDS: LIPITOR PO SCH (20:19)
[2019-04-23] MEDS: REQUIP PO SCH (20:19)
[2019-04-24] MEDS: PROTONIX PO SCH (05:54)
[2019-04-24] MEDS: SYNTHROID PO SCH (05:54)
[2019-04-24] MEDS: HYZAAR 50-12.5 MG TAB PO SCH (08:22)
[2019-04-24] MEDS: ROCEPHIN 1 GM/50 ML D5W 1 GM/50 ML BAG IV SCH (08:22)
[2019-04-24] MEDS: LEXAPRO PO SCH (08:22)
[2019-04-24] MEDS: ASPIRIN EC PO SCH (08:22)
[2019-04-24] MEDS: LOPRESSOR PO SCH ×2 (08:22→16:35)
[2019-04-24] MEDS: NON-FORMULARY MEDICATION (Cyanocobalamin (Vitamin B-12) [Vitamin B-12] 500 MCG) PO SCH (08:22)
[2019-04-24] MEDS: ATIVAN PO SCH (08:22)
[2019-04-24] MEDS: CALCIUM 500 + VIT D 200 MG TABLET PO SCH (08:22)
[2019-04-24] MEDS: SODIUM CHLORIDE 1,000 ML IV SCH (08:26)
--- NOTE | 2019-04-24 09:26 | HP ---
DATE OF SERVICE: 04/22/19 HISTORY OF PRESENT ILLNESS: This 78-year-old white male who presents to the Emergency Room with fever, weakness and headache. PAST MEDICAL HISTORY: Restless leg syndrome Chronic kidney disease, Stage II to III History of plantar fascitis GERD Neurodermatitis Cancer of the prostate in 1996 Depression Coronary artery disease with stent Hypertension LVH History of anemia Dyslipidemia Hiatal hernia History of fall in January of 2019 with 11th and 12th rib fracture along with L1-L2 transverse process, was being followed by Dr. Esparza PAST SURGICAL HISTORY: Prostatectomy in 1996 Coronary artery disease with stent in 2010 REVIEW OF SYSTEMS: CONSTITUTIONAL: Positive for fever. Positive for weakness and fatigue. No night sweats. No fatigue, malaise, lethargy. No chills. HEENT: Eyes: No visual changes. No eye pain. No eye discharge. ENT: No runny nose. No epistaxis. No sinus pain. No sore throat. No odynophagia. No ear pain. No congestion. RESPIRATORY: No cough, no congestion. No hemoptysis. No shortness of breath. CARDIOVASCULAR: No angina symptoms. No CHF symptoms. No atypical chest pain for CAD. No palpitations. No PND. No orthopnea. GASTROINTESTINAL: No abdominal pain. No nausea or vomiting. No diarrhea or constipation. No hematemesis. No hematochezia. GENITOURINARY: No urgency. No frequency. No dysuria. No hematuria. No obstructive symptoms. No discharge. No pain. No significant abnormal bleeding. MUSCULOSKELETAL: No musculoskeletal pain. No joint swelling. No arthritis. NEUROLOGICAL: No headache. No neck pain. No syncope. No seizures. No dizziness. PSYCHIATRIC: Not anxious. No depression. No suicidal thoughts. No homicidal thoughts. SKIN: No rash. No lesions. No wounds. ENDOCRINE: No unexplained weight loss. No weight gain. HEMATOLOGIC/LYMPHATIC: No anemia. No purpura. No petechiae. No prolonged or excessive bleeding. No palpable lymph nodes. PERSONAL/FAMILY/SOCIAL HISTORY: He is but recently remarried this summer. He is nonsmoker, no alcohol or ilicit drug use. Performs all activities of daily living. MEDICATIONS: (HOME) Calcium Carbonate-Vitamin D3 one tab p.o. daily Lorazepam 0.5 mg p.o. bedtime Aspirin 81 mg p.o. daily Nitroglycerin 0.4 mg sublingual as directed p.r.n. Atorvastatin 40 mg p.o. bedtime Nexium one cap p.o. daily Metoprolol 25 mg p.o. b.i.d. Multivitamin one each p.o. daily [place] 3-LHN-VHE-Fish Oil 2,400 mg p.o. b.i.d. Escitalopram 20 mg p.o. daily Levothyroxine 50 mcg p.o. q.d a.c. Losartan-Hydrochlorothiazide one tab p.o. daily Ropinirole 0.5 mg p.o. bedtime Cyanocobalamin 500 mcg p.o. daily ALLERGIES: NKDA PHYSICAL EXAMINATION: VITAL SIGNS: Temperature 101.8, heart rate 60, respirations 20, BP 132/61, pulse ox 95% on room air. HEENT: Head normocephalic, atraumatic. Eyes: Extraocular muscles are intact. Pupils are equal, round and reactive to light and accommodation. Ears: No lesions. Nose appeared normal. Throat: No exudate or erythema. NECK: Supple. No JVD, no carotid bruit. No lymphadenopathy or thyromegaly. LUNGS: Diminished breath sounds. Clear to auscultation. Percussion note normal. Chest symmetrical. HEART: S1, S2, no S3. No murmur. No cyanosis or clubbing. No ascites. Pulses: Dorsalis pedis and posterior tibial pulses +1 to +2 bilaterally. ABDOMEN: Soft. Nontender. Bowel sounds active. No CVA tenderness. No mass felt. EXTREMITIES: No edema. Full range of motion of all extremities, equal. NEUROLOGIC: No focal deficit. Cranial nerves II through XII are grossly intact. No headache, no double vision or headache. SKIN: Not dry. Intact. Turgor - normal. LYMPHATIC: No palpable lymph nodes/no lymphedema. MUSCULOSKELETAL: Normal joints with no swelling. Muscle tone is normal. CT of the chest shows no acute process, stable right upper lobe nodule, atherosclerotic disease. CT of the abdomen and pelvis shows nonspecific bilateral perinephric fat stranding. Rapid flu A and B both negative. Rapid strep is negative. ABGs on room air, pH 7.4, pc02 28, p02 88, 02 sat 98, TC02 23. Sodium 133, potassium 3.8, BUN 22, creatinine 1.5, glucose 124, lactic acid 1.58, white count 8.6, hemoglobin 12.5, hematocrit 37.4, platelets 174. Urine shows trace mucus, 1+ protein. ASSESSMENT: 1. FEVER OF UNKNOWN ETIOLOGY LIKELY VIRAL SYNDROME. 2. POSSIBLE URINARY TRACT INFECTION. 3. ACUTE DEHYDRATION WITH ACUTE RENAL AZOTEMIA. 4. UNDERLYING CHRONIC KIDNEY DISEASE STAGE II TO III. 5. HISTORY OF CORONARY ARTERY DISEASE. 6. HYPERTENSION. 7. DYSLIPIDEMIA. 8. LVH. 9. ANEMIA. PLAN: 1. We will admit. 2. Routine telemetry orders. 3. CBC, CMP daily. 4. NS IV at 75 cc/hr. 5. Start Rocephin at 1 gm IV daily. 6. 1 cc Decadron 4 mg IM times one dose. 7. Tylenol as needed for fever. 8. 2D echo. 9. Regular diet. 10. Continue home medications. 11. Will follow closely. TIME SPENT: More than 70 minutes. MTDD
--- NOTE | 2019-04-24 09:59 | PN ---
DATE OF SERVICE: 04/22/19 SUBJECTIVE: This 78-year-old white male was hospitalized with fever, genrealized aches and pains. Flu test was negative. PHYSICAL EXAMINATION: HEENT: Head normocephalic, atraumatic. Eyes: Extraocular muscles are intact. Pupils are equal, round and reactive to light and accommodation. Ears: No lesions. Nose appeared normal. Throat: No exudate or erythema. NECK: Supple. No JVD, no carotid bruit. No lymphadenopathy or thyromegaly. LUNGS: Clear to auscultation. Percussion note normal. Chest symmetrical. HEART: S1, S2, no S3. No murmurs. No cyanosis or clubbing. No ascites. Pulses: Dorsalis pedis and posterior tibial pulses +1 to +2 bilaterally. ABDOMEN: Soft. Nontender. Bowel sounds active. No CVA tenderness. No mass felt. EXTREMITIES: No edema. Full range of motion of all extremities, equal. NEUROLOGIC: No focal deficit. Cranial nerves II through XII are grossly intact. No headache, no double vision or headache. SKIN: Not dry. Intact. Turgor - normal. LYMPHATIC: No palpable lymph nodes/no lymphedema. MUSCULOSKELETAL: Normal joints with no swelling. Muscle tone is normal. The patient's chest x-ray was negative. Creatinine 1.5, BUN 23 with some dehydration with dry skin. The patient's UA was not done when the patient was in the hospital. Later on it was done which was reported as negative. ASSESSMENT: 1. Febrile illness likely to be flu syndrome. 2. Dehydration with renal azotemia. 3. Generalized aches and pains. PLAN: 1. Give IV fluids. 2. Rocephin. 3. 1 cc Decadron IM. TIME SPENT: More than 30 minutes. Plan and coordination of the patient's care discussed in the presence of nurse. BRYANT
--- NOTE | 2019-04-24 10:34 | PN ---
DATE OF SERVICE: 04/23/19 SUBJECTIVE: The patient was seen and examined with the nurse practitioner. The patient's condition has improved, afebrile and feeling better. Aches and pains are a lot less. Urine was acceptable. PHYSICAL EXAMINATION: HEENT: Head normocephalic, atraumatic. Eyes: Extraocular muscles are intact. Pupils are equal, round and reactive to light and accommodation. Ears: No lesions. Nose appeared normal. Throat: No exudate or erythema. NECK: Supple. No JVD, no carotid bruit. No lymphadenopathy or thyromegaly. LUNGS: Clear to auscultation. Percussion note normal. Chest symmetrical. HEART: S1, S2, no S3. No murmurs. No cyanosis or clubbing. No ascites. Pulses: Dorsalis pedis and posterior tibial pulses +1 to +2 bilaterally. ABDOMEN: Soft. Nontender. Bowel sounds active. No CVA tenderness. No mass felt. EXTREMITIES: No edema. Full range of motion of all extremities, equal. NEUROLOGIC: No focal deficit. Cranial nerves II through XII are grossly intact. No headache, no double vision or headache. SKIN: Warm and dry. Intact. Turgor - somewhat better. LYMPHATIC: No palpable lymph nodes/no lymphedema. MUSCULOSKELETAL: Normal joints with no swelling. Muscle tone is normal. ASSESSMENT: 1. The patient's condition is improving. The patient has febrile illness, likely flu syndrome, recovering. 2. Continue IV antibiotics for possibility of urinary tract infection. 3. Renal azotemia seems to be resolving. TIME SPENT: More than 30 minutes. Plan and coordination of the patient's care discussed in the presence of nurse. BRYANT
[2019-04-24] MEDS: K-DUR PO SCH ×2 (13:49→16:35)
[2019-04-24] MEDS: REQUIP PO SCH (20:37)
[2019-04-24] MEDS: LIPITOR PO SCH (20:37)
[2019-04-25 05:30] VITALS: BP 143/56; TEMP 97.8
[2019-04-25] MEDS: SYNTHROID PO SCH (05:54)
[2019-04-25] MEDS: PROTONIX PO SCH (05:54)
[2019-04-25] MEDS: LEXAPRO PO SCH (08:25)
[2019-04-25] MEDS: HYZAAR 50-12.5 MG TAB PO SCH (08:25)
[2019-04-25] MEDS: LOPRESSOR PO SCH (08:25)
[2019-04-25] MEDS: ATIVAN PO SCH (08:25)
[2019-04-25] MEDS: ASPIRIN EC PO SCH (08:25)
[2019-04-25] MEDS: CALCIUM 500 + VIT D 200 MG TABLET PO SCH (08:25)
[2019-04-25] MEDS: K-DUR PO SCH ×2 (08:25→12:46)
[2019-04-25] MEDS: NON-FORMULARY MEDICATION (Cyanocobalamin (Vitamin B-12) [Vitamin B-12] 500 MCG) PO SCH (08:28)
[2019-04-25] MEDS ORDERED: KEFLEX PO SCH (09:00)
--- NOTE | 2019-04-27 11:24 | ECHO2D ---
Date of Exam: 04/25/19 Ordering Physician: DR. MONICA GUERRERO Room #: 122 Reason for Echo: FEVER, SOB, CAD/STENTS X 2 (2000) M-Mode Normal Adult Results LV Dimensions Normal Adult Results AoV Opening excursions >1.6 >1.6 LVEDD-base- 3.5-5.8 4.3 Ao root dimensions 2.0-3.7 4.1 LVESD-base- 3.1-4.6 L. Atrium dimensions 1.9-3.8 4.6 Post. Wall thickness 0.8-1.1 1.2 IV septum (thickness) 0.7-1.2 1.3 Post. Wall excursion 0.72-1.3 NORMAL Septal motion NORMAL Systolic motion R. Ventricular cavity 1.5-2.0 NORMAL LVEF 60% 68% Paradoxical septal wall motion NORMAL 2-D : 2-D M Mode Echocardiogram was performed using apical four chamber and left parasternal long and short axis views. Mitral, tricuspid and aortic valves appear to be normal. Contractility of the left ventricle seems to be normal, so is the cavity size. ENLARGED LEFT ATRIAL CAVITY--DILATED AORTIC ROOT. There is no pericardial effusion. There is no thrombus noted in the left ventricle or left atrial cavity. No mitral valve prolapse noted. COLOR FLOW: MODERATE AORTIC REGURGITATION M-MODE: MV: NORMAL AV: NORMAL TV: NORMAL PV: NORMAL CHAMBER SIZE: ENLARGED LEFT ATRIAL CAVITY WALL MOTION: NORMAL PERICARDIUM: NORMAL INTERPRETATION: 1. LEFT VENTRICULAR HYPERTROPHY WITH ENLARGED LEFT ATRIAL CAVITY 2. DILATED AORTIC ROOT (BORDERLINE) 3. NORMAL LEFT VENTRICULAR CONTRACTILITY 4. MODERATE AORTIC REGURGITATION MTDD
--- NOTE | 2019-04-27 11:28 | PN ---
DATE OF SERVICE: 04/25/19 SUBJECTIVE: The patient was seen and examined this morning. His condition has improved. He is up and about. Appetite is normal. REVIEW OF SYSTEMS: CONSTITUTIONAL: No night sweats. No fatigue, malaise, lethargy. No fever or chills. HEENT: Eyes: No visual changes. No eye pain. No eye discharge. ENT: No runny nose. No epistaxis. No sinus pain. No sore throat. No odynophagia. No congestion. RESPIRATORY: No cough, no congestion. No hemoptysis. No shortness of breath. CARDIOVASCULAR: No angina symptoms. No CHF symptoms. No atypical chest pain for CAD. No palpitations. No PND. No orthopnea. GASTROINTESTINAL: No abdominal pain. No nausea or vomiting. No diarrhea or constipation. No hematemesis. No hematochezia. GENITOURINARY: No urgency. No frequency. No dysuria. No hematuria. No obstructive symptoms. No discharge. No pain. No significant abnormal bleeding. MUSCULOSKELETAL: No musculoskeletal pain; no joint swelling. NEUROLOGICAL: No headache. No neck pain. No syncope. No seizures. No dizziness. PSYCHIATRIC: Not anxious. No depression. No suicidal thoughts. No homicidal thoughts. SKIN: No rash. No lesions. No wounds. ENDOCRINE: No unexplained weight loss. No weight gain. HEMATOLOGIC/LYMPHATIC: No anemia. No purpura. No petechiae. No prolonged or excessive bleeding. No palpable lymph nodes. PHYSICAL EXAMINATION: GENERAL: The patient is oriented to time, place and person. VITAL SIGNS: Stable with blood pressure 150/70, oxygen saturation 98% on room air. HEENT: Head normocephalic, atraumatic. Eyes: Extraocular muscles are intact. Pupils are equal, round and reactive to light and accommodation. Ears: No lesions. Nose appeared normal. Throat: No exudate or erythema. NECK: Supple. No JVD, no carotid bruit. No lymphadenopathy or thyromegaly. LUNGS: Clear to auscultation. Percussion note normal. Chest symmetrical. HEART: S1, S2, no S3. No murmurs. No cyanosis or clubbing. No ascites. Pulses: Dorsalis pedis and posterior tibial pulses +1 to +2 bilaterally. ABDOMEN: Soft. Nontender. Bowel sounds active. No CVA tenderness. No mass felt. EXTREMITIES: No edema. Full range of motion of all extremities, equal. 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 SKIN: Warm and dry. Intact. Turgor - alot better. LYMPHATIC: No palpable lymph nodes/no lymphedema. MUSCULOSKELETAL: Normal joints with no swelling. Muscle tone is normal. ASSESSMENT: 1. Acute febrile illness resolved. 2. Renal azotemia resolved. 3. Coronary artery disease with CVS status stable. The patient had echocardiogram done which showed practically normal LV contractility, normal valves. Aortic regurgitation noted. ADDENDUM: The patient is going to be discharged home on to be seen on as an outpatient. Advised to rest. Condition is stable. TIME SPENT: More than 30 minutes. Plan and coordination of the patient's care discussed in the presence of nurse. BRYANT
--- NOTE | 2019-04-27 12:55 | PN ---
DATE OF SERVICE: 04/24/19 SUBJECTIVE: 78-year-old white male hospitalized with viral illness likely viral has been recovering. The patient, according to him, is feeling 100% better. He still has some weakness, inability to walk without tumbling. The patient is continued on IV fluids and IV antibiotics. We will make him walk today. REVIEW OF SYSTEMS: CONSTITUTIONAL: No night sweats. No fatigue, malaise, lethargy. No fever or chills. HEENT: Eyes: No visual changes. No eye pain. No eye discharge. ENT: No runny nose. No epistaxis. No sinus pain. No sore throat. No odynophagia. No congestion. RESPIRATORY: No cough, no congestion. No hemoptysis. No shortness of breath. CARDIOVASCULAR: No angina symptoms. No CHF symptoms. No atypical chest pain for CAD. No palpitations. No PND. No orthopnea. GASTROINTESTINAL: Appetite has improved. No abdominal pain. No nausea or vomiting. No diarrhea or constipation. No hematemesis. No hematochezia. GENITOURINARY: No urgency. No frequency. No dysuria. No hematuria. No obstructive symptoms. No discharge. No pain. No significant abnormal bleeding. MUSCULOSKELETAL: No musculoskeletal pain; no joint swelling. NEUROLOGICAL: No headache. No neck pain. No syncope. No seizures. No dizziness. PSYCHIATRIC: Not anxious. No depression. No suicidal thoughts. No homicidal thoughts. SKIN: No rash. No lesions. No wounds. ENDOCRINE: No unexplained weight loss. No weight gain. HEMATOLOGIC/LYMPHATIC: No anemia. No purpura. No petechiae. No prolonged or excessive bleeding. No palpable lymph nodes. PHYSICAL EXAMINATION: VITAL SIGNS: Temperature 97.8, pulse ox 60, respiratory rate 16, blood pressure 138/62, pulse ox 97% on room air. HEENT: Head normocephalic, atraumatic. Eyes: Extraocular muscles are intact. Pupils are equal, round and reactive to light and accommodation. Ears: No lesions. Nose appeared normal. Throat: No exudate or erythema. NECK: Supple. No JVD, no carotid bruit. No lymphadenopathy or thyromegaly. LUNGS: Clear to auscultation. Percussion note normal. Chest symmetrical. HEART: S1, S2, no S3. No murmurs. No cyanosis or clubbing. No ascites. Pulses: Dorsalis pedis and posterior tibial pulses +1 to +2 bilaterally. ABDOMEN: Soft. Nontender. Bowel sounds active. No CVA tenderness. No mass felt. EXTREMITIES: No edema. Full range of motion of all extremities, equal. NEUROLOGIC: No focal deficit. Cranial nerves II through XII are grossly intact. No headache, no double vision or headache. SKIN: Not dry. Intact. Turgor - alot better. LYMPHATIC: No palpable lymph nodes/no lymphedema. MUSCULOSKELETAL: Normal joints with no swelling. Muscle tone is normal. LABS: Hemoglobin 11.3, hematocrit 33, WBC 6,500, normal differential. Creatinine 1.1, BUN 22, potassium 3.4. ASSESSMENT: 1. Acute febrile illness, viral seems to be resolving. 2. Renal azotemia, resolved. 3. Hypokalemia, improving. 4. Cardiovascular status stable with less shortness of breath. 5. Will undergo echocardiogram tomorrow to evaluate LV function. 6. The patient has history of hypertension, moderate to severe with history of coronary artery disease. Note: The patient has early signs of dementia, forgetfulness. The patient's female friend also indicated that he has been confused at times lately more so. PLAN: 1. Will do MMSE. 2. Will give Keflex 500 mg t.i.d. daily. 3. D/C Rocephin. TIME SPENT: More than 30 minutes. Plan and coordination of the patient's care discussed in the presence of nurse. BRYANT
--- NOTE | 2019-05-01 13:11 | DS ---
DATE OF SERVICE: 04/25/19 FINAL DIAGNOSIS: 1. RENAL AZOTEMIA WITH DEHYDRATION. 2. ACUTE FEBRILE ILLNESS LIKELY VIRAL. 3. CORONARY ARTERY DISEASE WITH STENT. 4. HYPERTENSION. 5. DYSLIPIDEMIA. 6. GENERALIZED OSTEOARTHRITIS. DISCHARGE INSTRUCTIONS: 1. Followup appointment with Dr. Montenegro on morning, 04/30/19. 2. Advised to rest MEDICATIONS AT DISCHARGE: Advised to continue the same medication as before. NEW PRESCRIPTIONS: No change except for Keflex 500 mg t.i.d. for five days. HOSPITAL COURSE: The patient was hospitalized with temperature of 101.7. The patient's rapid flu test, UA and chest x-ray were all negative. The patient's likely cause for febrile illness was viral. The patient also had abnormal creatinine and BUN indicating acute renal azotemia. The patient was treated with IV fluids, steroids, antibiotics. The patient's condition has improved. His creatinine now is 1 with BUN of 16. Skin turgor is a lot better. Appetite is normal. He is feeling 100% better. His generalized aches and pain on admission were likely from vital etiology. Condition at time of discharge was stable. His cardiovascular status is stable with echocardiogram showing normal LV contractility with ejection fraction. Normal valvular structures. The patient had shortness of breath on admission with having history of coronary artery disease with stent placement. Echo was done. TIME SPENT: More than 60 minutes. BRYANT
== END 2019-04-25 13:03 | disposition home or self-care (01) | DRG 103 ==
LOC: ED 11:10 → MEDSURG B 13:44
PROVIDERS: ADMIT Internal Medicine; ATTEND Internal Medicine
DX: R79.89 Other specified abnormal findings of blood chemistry; R63.0 Anorexia; E78.5 Hyperlipidemia, unspecified; R51 Headache; I25.10 Atherosclerotic heart disease of native coronary artery without angina pectoris; N39.0 Urinary tract infection, site not specified; R05 Cough; I10 Essential (primary) hypertension; M19.90 Unspecified osteoarthritis, unspecified site; N18.2 Chronic kidney disease, stage 2 (mild); J02.9 Acute pharyngitis, unspecified; N18.9 Chronic kidney disease, unspecified; R09.81 Nasal congestion; D64.9 Anemia, unspecified; R53.1 Weakness; E86.0 Dehydration